=== PATIENT | male | born 1940 | race Caucasian/White ===

== ENCOUNTER 2019-04-15 06:48 | Day surgery (SDC) | payer MEDICARE, OTHER ==
[~2019-04-15] VITALS: Ht 180.3 cm; Wt 212.4 kg
[~2019-04-15 06:48] MED LIST: AMBIEN CR PO; AMLO10 PO; ASPI81EC PO; Arthritis Pain650 M1 PO; BUDE32NIS; CLOB.05TO; CRUTCH3 USE; DILT120 PO; DILT120ERA PO; DIPH50 PO; ESOM20 PO; GABA300 PO; HYDACE10B PO; HYDACE5 PO; LISI20 PO; OMEP20ER PO; OMEPRAZOLE MAGN20 MG PO; OXYACE5T PO; RABE20; RABE20 PO; SILD50TA PO; TAMS.4ER PO; TRAZ50; VIT D PO; VITAMIN B-121000 MCG PO; ZOLP10; ZOLP10 PO; ZOLP12.5 PO
[2019-04-15] MEDS ORDERED: CYAN1000I PO (07:22)
--- NOTE | 2019-04-15 07:27 | NUR ---
04/15/[address] AWARE OF PT'S LOW HR. NO ORDERS GIVEN AT THIS TIME. PT IS RESTING COMFORTABLY IN BED, SIDE RAILS IN PLACE, CALL LIGHT WITHIN REACH, VSS. PT TEACHING COMPLETED.
== END 2019-04-15 08:40 | disposition home or self-care (01) ==
LOC: ORSCSDS 06:48
PROVIDERS: Ophthalmology
PROC: 08RJ3JZ Replacement of Right Lens with Synthetic Substitute, Percutaneous Approach (ICD-10-PCS; principal; 2019-04-15 08:00)
DX: H25.11 Age-related nuclear cataract, right eye (principal); I10 Essential (primary) hypertension; Z79.899 Other long term (current) drug therapy; K21.9 Gastro-esophageal reflux disease without esophagitis; Z87.891 Personal history of nicotine dependence
CPT/HCPCS: J2001; J2250; J3010; J3301; J7120; V2632

== ENCOUNTER 2019-07-13 06:29 | Day surgery (SDC) | payer MEDICARE, OTHER ==
[~2019-07-13] VITALS: Ht 177.8 cm; Wt 97.8 kg
[~2019-07-13 06:29] MED LIST changes: +CYAN1000I PO
[2019-07-13] MEDS ORDERED: PREG100 PO (07:37)
== END 2019-07-13 22:48 | disposition home or self-care (01) ==
LOC: MHTC 06:29
DX: I35.1 Nonrheumatic aortic (valve) insufficiency (principal); I77.810 Thoracic aortic ectasia; I70.0 Atherosclerosis of aorta; I10 Essential (primary) hypertension; E78.5 Hyperlipidemia, unspecified; J44.9 Chronic obstructive pulmonary disease, unspecified; K21.9 Gastro-esophageal reflux disease without esophagitis; G62.9 Polyneuropathy, unspecified; I44.0 Atrioventricular block, first degree; Z87.891 Personal history of nicotine dependence
CPT/HCPCS: 93312; 93325; J0461; J2250; J2310; J3010; J7040

== ENCOUNTER 2020-08-24 21:04 | Emergency (ER) | payer OTHER, MEDICARE ==
[~2020-08-24] VITALS: Ht 180.3 cm; Wt 97.5 kg
[~2020-08-24 21:04] MED LIST changes: +AMLO5 PO; +LOSA50 PO; +PREG100 PO
== END 2020-08-25 00:01 | disposition home or self-care (01) ==
LOC: ER 21:04
DX: R51 Headache (principal); K21.9 Gastro-esophageal reflux disease without esophagitis; I10 Essential (primary) hypertension; Z79.899 Other long term (current) drug therapy; Z87.891 Personal history of nicotine dependence
CPT/HCPCS: 70450; 99284-25

== ENCOUNTER 2021-05-01 08:14 | Emergency (ER) | payer MEDICARE, OTHER ==
[~2021-05-01] VITALS: Ht 180.3 cm; Wt 95.2 kg
[2021-05-01] MEDS ORDERED: SULTRIDS PO (10:20)
== END 2021-05-01 10:29 | disposition home or self-care (01) ==
LOC: ER 08:14
DX: L03.113 Cellulitis of right upper limb (principal); I10 Essential (primary) hypertension; K21.9 Gastro-esophageal reflux disease without esophagitis; Z87.891 Personal history of nicotine dependence; Z79.899 Other long term (current) drug therapy
CPT/HCPCS: 73080; 99283-25

== ENCOUNTER 2021-05-15 10:20 | Emergency (ER) | payer MEDICARE, OTHER ==
[~2021-05-15] VITALS: Ht 180.3 cm; Wt 96.2 kg
[~2021-05-15 10:20] MED LIST changes: +SULTRIDS PO
[2021-05-15] MEDS ORDERED: DOXY100 PO (12:20)
[2021-05-15] MEDS ORDERED: CEPH500 PO (12:20)
== END 2021-05-15 12:27 | disposition home or self-care (01) ==
LOC: ER 10:20
DX: L03.113 Cellulitis of right upper limb (principal); K21.9 Gastro-esophageal reflux disease without esophagitis; Z79.899 Other long term (current) drug therapy
CPT/HCPCS: 99282; A9270

== ENCOUNTER 2021-12-04 14:43 | Emergency (ER) | payer MEDICARE, OTHER ==
[~2021-12-04] VITALS: Ht 180.3 cm; Wt 95.2 kg
[~2021-12-04 14:43] MED LIST changes: +CEPH500 PO; +DOXY100 PO
[2021-12-04 15:22] LABS: BASOPHILS ABSOLUTE AUTO 0.06 K/mm3 (0.00-0.23); BASOPHILS PERCENT AUTO 1 % (0-2); EOSINOPHILS ABSOLUTE AUTO 0.21 K/mm3 (0.00-0.68); EOSINOPHILS PERCENT AUTO 4 % (0-6); Hematocrit 35.6 % (37.0-53.0); Hemoglobin 12.4 g/dL (13.5-17.5); IMMATURE GRAN PERCENT AUTO 0 % (0-1); LYMPHOCYTES ABSOLUTE AUTO 1.64 K/mm3 (0.84-5.20); LYMPHOCYTES PERCENT AUTO 31 % (21-46); MONOCYTES ABSOLUTE AUTO 0.49 K/mm3 (0.16-1.47); MONOCYTES PERCENT AUTO 9 % (4-13); Mean Corpuscular HGB 33.2 pg (26.0-34.0); Mean Corpuscular HGB Conc 34.8 g/dL (31.5-36.5); Mean Corpuscular Volume 95 fL (80-100); NEUTROPHILS ABSOLUTE AUTO 2.98 K/mm3 (1.96-9.15); NEUTROPHILS PERCENT AUTO 55 % (41-73); Platelet Count 188 K/mm3 (150-400); RDW Coefficient Variation 13.8 % (11.7-14.2); RDW Standard Deviation 49.1 fL (35.1-46.3); Red Blood Cell Count 3.73 M/mm3 (4.30-5.90); White Blood Cell Count 5.38 K/mm3 (4.00-11.30)
[2021-12-04 15:38] LABS: Alanine Aminotransfer (ALT/SGP 25 U/L (12-78); Albumin, Blood 3.3 g/dL (3.4-5.0); Albumin/Globulin Ratio 0.9 (0.8-1.8); Alk Phos 70 U/L (50-136); Anion Gap 6 mmol/L (6-16); Aspartate Aminotrans (AST/SGOT 24 U/L (12-37); Bilirubin, Total 0.4 mg/dL (0.1-1.0); Blood Urea Nitrogen 19 mg/dL (8-24); Bun/Creatinine Ratio 27.3 (12.0-20.0); CO2, Blood 25 mmol/L (21-32); Chloride, Blood 109 mmol/L (98-108); Globulin, Blood 3.8 g/dL (2.2-4.0); Glomerular Filtration Rate >60 (60-); Glucose, Blood 130 mg/dL (70-99); Potassium, Blood 3.6 mmol/L (3.5-5.5); Sodium, Blood 140 mmol/L (136-145); Total Protein, Blood 7.1 g/dL (6.4-8.2); Troponin I <0.015 ng/mL (0.000-0.040)
== END 2021-12-04 18:15 | disposition home or self-care (01) ==
LOC: ER 14:43
PROVIDERS: Physician Assistant
DX: R07.89 Other chest pain (principal); Z79.899 Other long term (current) drug therapy; K21.9 Gastro-esophageal reflux disease without esophagitis; I10 Essential (primary) hypertension
CPT/HCPCS: 71046; 80053; 84484; 85025; 93005; 93010; 99285-25

== ENCOUNTER 2022-05-09 06:12 | Day surgery (SDC) | payer MEDICARE, OTHER ==
[~2022-05-09] VITALS: Ht 180.3 cm; Wt 99.0 kg
--- NOTE | 2022-05-09 06:55 | NUR ---
05/09/22 0655 Antelmo SanchesINE TO L EYE AT 0634, MARICARMEN TO L EYE AT 0636 BY [facility].FLL.
== END 2022-05-09 08:30 | disposition home or self-care (01) ==
LOC: ORSCSDS 06:12
PROVIDERS: Ophthalmology
PROC: 08RK3JZ Replacement of Left Lens with Synthetic Substitute, Percutaneous Approach (ICD-10-PCS; principal; 2022-05-09 07:30)
DX: H25.12 Age-related nuclear cataract, left eye (principal); I10 Essential (primary) hypertension; K21.9 Gastro-esophageal reflux disease without esophagitis; E66.8 Other obesity; Z68.30 Body mass index [BMI] 30.0-30.9, adult; Z79.899 Other long term (current) drug therapy
CPT/HCPCS: J2001; J2250; J3010; J3301; J7040; V2632

== ENCOUNTER 2022-08-06 10:50 | Emergency (ER) | payer OTHER, MEDICARE ==
[~2022-08-06] VITALS: Ht 180.3 cm; Wt 95.2 kg
[2022-08-06] MEDS ORDERED: ACET500 PO (13:20)
[2022-08-06] MEDS ORDERED: IBUP400 PO (13:20)
== END 2022-08-06 13:39 | disposition home or self-care (01) ==
LOC: ER 10:50
DX: S80.02XA Contusion of left knee, initial encounter (principal); I10 Essential (primary) hypertension; K21.9 Gastro-esophageal reflux disease without esophagitis; W01.0XXA Fall on same level from slipping, tripping and stumbling without subsequent striking against object, initial encounter; Z96.653 Presence of artificial knee joint, bilateral; Z79.899 Other long term (current) drug therapy
CPT/HCPCS: 73562-LT; A9270; J1885

== ENCOUNTER → 2024-12-04 | Outpatient (CLI) | payer MEDICARE, OTHER ==
[~2024-12-04] MED LIST changes: +ACET500 PO; +IBUP400 PO
[2024-12-04 14:13] LABS: Stool Occult Bld Immuno 1 Negative (NEGATIVE)
== END ==
LOC: LAB 07:20 → LAB SHORT 07:20
PROVIDERS: Family Medicine
DX: D64.9 Anemia, unspecified (principal)
CPT/HCPCS: G0328

== ENCOUNTER 2025-03-02 11:11 | Observation (INO) | payer OTHER, MEDICARE ==
[~2025-03-02] VITALS: Ht 180.3 cm; Wt 95.7 kg
[2025-03-02] MEDS ORDERED: Ketorolac Tromethamine 15mg Vial IV ONE (12:40)
[2025-03-02 13:07] LABS: BASOPHILS ABSOLUTE AUTO 0.05 K/mm3 (0.00-0.23); BASOPHILS PERCENT AUTO 1 % (0-2); EOSINOPHILS ABSOLUTE AUTO 0.06 K/mm3 (0.00-0.68); EOSINOPHILS PERCENT AUTO 1 % (0-6); Hematocrit 35.6 % (37.0-53.0); Hemoglobin 12.5 g/dL (13.5-17.5); IMMATURE GRAN ABSOLUTE AUTO 0.02 K/mm3 (0.00-0.10); IMMATURE GRAN PERCENT AUTO 0 % (0-1); LYMPHOCYTES ABSOLUTE AUTO 1.63 K/mm3 (0.84-5.20); LYMPHOCYTES PERCENT AUTO 27 % (21-46); MONOCYTES ABSOLUTE AUTO 0.46 K/mm3 (0.16-1.47); MONOCYTES PERCENT AUTO 8 % (4-13); Mean Corpuscular HGB 33.6 pg (26.0-34.0); Mean Corpuscular HGB Conc 35.1 g/dL (31.5-36.5); Mean Corpuscular Volume 96 fL (80-100); Mean Platelet Volume 10.5 fL (9.1-12.4); NEUTROPHILS ABSOLUTE AUTO 3.77 K/mm3 (1.96-9.15); NEUTROPHILS PERCENT AUTO 63 % (41-73); Platelet Count 182 K/mm3 (150-400); RDW Coefficient Variation 14.1 % (11.7-14.2); RDW Standard Deviation 49.3 fL (35.1-46.3); Red Blood Cell Count 3.72 M/mm3 (4.30-5.90); White Blood Cell Count 5.99 K/mm3 (4.00-11.30)
[2025-03-02 13:38] LABS: Albumin, Blood 3.4 g/dL (3.4-5.0); Albumin/Globulin Ratio 1.1 (0.8-1.8); Bilirubin, Total 0.7 mg/dL (0.1-1.0); Bun/Creatinine Ratio 18.4 (12.0-20.0); Calcium, Blood 8.7 mg/dL (8.5-10.1); Creatinine, Blood 0.65 mg/dL (0.60-1.20); Globulin, Blood 3.2 g/dL (2.2-4.0); Total Protein, Blood 6.6 g/dL (6.4-8.2)
[2025-03-02] MEDS ORDERED: Aspirin 325 MG Tab PO ONE (14:05)
[2025-03-02] MEDS ORDERED: Ondansetron HCl 2 MG / ML 2ML Vial IV ONE (14:25)
[2025-03-02] MEDS ORDERED: Morphine Sulfate 10 MG/ML 1MLSYR IV PRN (14:25)
[2025-03-02] MEDS ORDERED: Morphine Sulfate 4 MG/1 ML Injection IV ONE (15:55)
[2025-03-02 16:21] LABS: Free Thyroxine 0.88 ng/dL (0.70-1.60)
[2025-03-02 16:28] LABS: Thyroid Stimulating Hormone 3.45 uIU/mL (0.360-4.800); Triiodothyronine, Free 2.2 pg/mL (2.18-3.98)
[2025-03-02] MEDS ORDERED: Polyethylene Glycol 3350 17 gm PO SCH (17:00)
[2025-03-02] MEDS ORDERED: OxyCODONE 5 mg/Acetamin 325 mg TABLET PO PRN (17:05)
[2025-03-02 18:08] VITALS: BP 172/72
[2025-03-02] MEDS ORDERED: Losartan Potassium 50 MG Tab PO ONE (18:55)
[2025-03-02 20:29] VITALS: BP 132/59
[2025-03-02] MEDS ORDERED: Pregabalin 50 MG Capsule PO SCH (21:00)
[2025-03-02] MEDS ORDERED: Melatonin 5 MG Tablet PO SCH (21:50)
[2025-03-03 00:06] VITALS: BP 100/46
[2025-03-03] MEDS ORDERED: NS 1,000 ML IV ONE ×2 (00:17→06:15)
[2025-03-03] MEDS ORDERED: NS 1,000 ML IR ONE (00:20)
--- NOTE | 2025-03-03 00:39 | NUR ---
UPDATE PT REMAINS A&OX4. MIDNIGHT BP SOFT 99/44 WITH MAP BELOW 65. MD NOTIFIED AND ORDERED 1L NS BOLUS. PT REMAINS BRADYCARDIC IN HIGH 30s-40s WHILE SLEEPING. PT STATES HE FEELS GREAT. WILL CONTINUE TO MONITOR.
--- NOTE | 2025-03-03 03:06 | NUR ---
SHIFT SUMMARY PT REMAINS A&OX4. CONTINUES TO BE BRADYCARDIC ON TELE 30s-40s @ REST. LITER BOLUS CONTINUES TO RUN, @ 0223 101/47 (63). PT CONTINUES TO STATE HE FEELS GREAT. NO ACUTE CHANGES OVERNIGHT. THIS RN GAVE REPORT TO ANDREW GAMEZ @ 0300 TO CONTINUE CARE.
[2025-03-03 03:41] VITALS: BP 113/57
[2025-03-03 03:59] LABS: Hematocrit 33.7 % (37.0-53.0); Hemoglobin 11.4 g/dL (13.5-17.5); Mean Corpuscular HGB 33.3 pg (26.0-34.0); Mean Corpuscular HGB Conc 33.8 g/dL (31.5-36.5); Mean Corpuscular Volume 99 fL (80-100); Mean Platelet Volume 11.2 fL (9.1-12.4); Platelet Count 174 K/mm3 (150-400); RDW Coefficient Variation 14.1 % (11.7-14.2); RDW Standard Deviation 51.8 fL (35.1-46.3); Red Blood Cell Count 3.42 M/mm3 (4.30-5.90); White Blood Cell Count 5.58 K/mm3 (4.00-11.30)
[2025-03-03 04:12] LABS: Bun/Creatinine Ratio 18.4 (12.0-20.0); Calcium, Blood 8.2 mg/dL (8.5-10.1); Creatinine, Blood 1.14 mg/dL (0.60-1.20); Potassium, Blood 4.3 mmol/L (3.5-5.5)
[2025-03-03 04:48] VITALS: BP 117/40
[2025-03-03 05:46] VITALS: BP 147/53
--- NOTE | 2025-03-03 05:58 | NUR ---
SHIFT SUMMARY/ASSUMPTION OF CARE NOTE ASSUMED CARE FROM EDUCATION AND OUTREACH COORDINATORVERA ASHLEY AT 0240. PT A/Ox4 AND COOPERATIVE WITH CARE. ANSWERS QUESTIONS APPROPRIATELY AND ABLE TO MAKE HIS NEEDS KNOWN. CARDIAC, CONTINUES TO BE SB WITH 1 DEGREE BLOCK WITH RATE AVERAGING IN 30-50'S. PT ASYMPTOMATIC AT THIS TIME. SBP SOFT DURING THE NIGHT, BUT RESPONDED WELL WITH NS FLUIDS. RESPIRATORY, MAINTAINS SPO2 >92% ON RA WITH NO REPORTS OF SOB OR DYSPNEA. GI/, ABLE TO USE URINAL AT BEDSIDE. NO REPORTS OF N/V/D OR ABD PAIN. NO NEW ORDERS AT THIS TIME. WILL REPORT TO ONCOMING RN. ANYA WISDOM OF THIS NOTE.
[2025-03-03] MEDS ORDERED: Losartan Potassium 50 MG Tab PO SCH ×2 (09:00→16:00)
[2025-03-03] MEDS ORDERED: Enoxaparin 40 MG/0.4 ML SYR SC SCH (09:00)
[2025-03-03] MEDS ORDERED: Cyanocobalamin 500 MCG Tab PO SCH (09:00)
[2025-03-03 09:28] VITALS: BP 131/62
[2025-03-03 12:30] VITALS: BP 146/83
[2025-03-03] MEDS ORDERED: Percocet 5-3251 EACH PO (13:40)
[2025-03-03] MEDS ORDERED: MIRALAX17 GM PO (13:41)
--- NOTE | 2025-03-03 15:19 | NUR ---
End of shift note/ Discharge. Pt has had a good day. Some episodes of bradycardia but Pt has remained asymptomatic. VSS. Pt was discharged home with a zio patch. Education provided on new meds and follow up appointments. All questions were answered. All belongings were taken with Pt. Escorted to the door for to pickup driver.
== END 2025-03-03 15:10 | disposition home or self-care (01) ==
LOC: ER 11:11 → ERHOLD 11:12 → PCU 11:12
PROVIDERS: Student in an Organized Health Care Education/Training Program; ADMIT Internal Medicine
DX: R00.1 Bradycardia, unspecified (principal); I44.0 Atrioventricular block, first degree; I36.1 Nonrheumatic tricuspid (valve) insufficiency; I35.1 Nonrheumatic aortic (valve) insufficiency; R10.9 Unspecified abdominal pain; W19.XXXA Unspecified fall, initial encounter; I11.0 Hypertensive heart disease with heart failure; I50.32 Chronic diastolic (congestive) heart failure; J44.9 Chronic obstructive pulmonary disease, unspecified; K21.9 Gastro-esophageal reflux disease without esophagitis; G62.9 Polyneuropathy, unspecified; E53.8 Deficiency of other specified B group vitamins; E55.9 Vitamin D deficiency, unspecified; G47.33 Obstructive sleep apnea (adult) (pediatric); Z87.891 Personal history of nicotine dependence; Z79.899 Other long term (current) drug therapy
CPT/HCPCS: 36415; 71101; 80048; 80053; 84439; 84443; 84481; 84484; 85025; 85027; 93005; 93010; 93246; 93306; 96372; 96374; 96375; 96376; 99284-25; A9270; G0378; J1650; J1885; J2270; J2405; J7030

== ENCOUNTER 2025-07-12 20:57 | Observation (INO) | payer OTHER, MEDICARE ==
[~2025-07-12] VITALS: Ht 180.3 cm; Wt 96.0 kg
[~2025-07-12 20:57] MED LIST changes: +MIRALAX17 GM PO; +Percocet 5-3251 EACH PO
[2025-07-12 21:16] LABS: BASOPHILS ABSOLUTE AUTO 0.03 K/mm3 (0.00-0.23); BASOPHILS PERCENT AUTO 1 % (0-2); EOSINOPHILS ABSOLUTE AUTO 0.13 K/mm3 (0.00-0.68); EOSINOPHILS PERCENT AUTO 2 % (0-6); Hematocrit 33.5 % (37.0-53.0); Hemoglobin 11.5 g/dL (13.5-17.5); IMMATURE GRAN ABSOLUTE AUTO 0.02 K/mm3 (0.00-0.10); IMMATURE GRAN PERCENT AUTO 0 % (0-1); LYMPHOCYTES ABSOLUTE AUTO 1.62 K/mm3 (0.84-5.20); LYMPHOCYTES PERCENT AUTO 27 % (21-46); MONOCYTES ABSOLUTE AUTO 0.66 K/mm3 (0.16-1.47); MONOCYTES PERCENT AUTO 11 % (4-13); Mean Corpuscular HGB Conc 34.3 g/dL (31.5-36.5); Mean Corpuscular Volume 96 fL (80-100); NEUTROPHILS ABSOLUTE AUTO 3.45 K/mm3 (1.96-9.15); NEUTROPHILS PERCENT AUTO 58 % (41-73); NRBC ABSOLUTE 0.00 K/mm3 (0.00-0.02); NRBC Auto 0.0 /100 WBC (0.0-0.2); Platelet Count 155 K/mm3 (150-400); RDW Coefficient Variation 13.6 % (11.7-14.2); RDW Standard Deviation 48.3 fL (35.1-46.3)
[2025-07-12 21:39] LABS: Alanine Aminotransfer (ALT/SGP 21.0 U/L (12-78); Albumin, Blood 3.2 g/dL (3.4-5.0); Albumin/Globulin Ratio 0.8 (0.8-1.8); Anion Gap 8.0 mmol/L (3-11); Aspartate Aminotrans (AST/SGOT 23.0 U/L (12-37); Bilirubin, Total 0.6 mg/dL (0.1-1.0); Blood Urea Nitrogen 15.0 mg/dL (8-24); CO2, Blood 26.0 mmol/L (21-32); Calcium, Blood 8.4 mg/dL (8.5-10.1); Chloride, Blood 108.0 mmol/L (98-108); Creatinine, Blood 0.75 mg/dL (0.60-1.20); Globulin, Blood 3.8 g/dL (2.2-4.0); Glucose, Blood 103.0 mg/dL (70-99); Potassium, Blood 4.1 mmol/L (3.5-5.5); Sodium, Blood 138.0 mmol/L (136-145); Total Protein, Blood 7.0 g/dL (6.4-8.2)
[2025-07-13] MEDS ORDERED: HydrALAZINE HCl 20 MG / ML 1ML Vial IV PRN (02:40)
[2025-07-13 06:10] LABS: Anion Gap 8.0 mmol/L (3-11); Blood Urea Nitrogen 17.0 mg/dL (8-24); CO2, Blood 24.0 mmol/L (21-32); Calcium, Blood 8.3 mg/dL (8.5-10.1); Chloride, Blood 111.0 mmol/L (98-108); Creatinine, Blood 0.61 mg/dL (0.60-1.20); Ferritin, Serum 484.0 ng/mL (26-388); Glucose, Blood 93.0 mg/dL (70-99); Potassium, Blood 4.1 mmol/L (3.5-5.5); Sodium, Blood 139.0 mmol/L (136-145); Total Iron Binding Capacity 211.0 ug/dL (250-450)
[2025-07-13] MEDS ORDERED: Enoxaparin 40 MG/0.4 ML SYR SC SCH (09:00)
[2025-07-13 10:32] VITALS: BP 152/61
[2025-07-13 12:40] VITALS: BP 154/52
[2025-07-13] MEDS ORDERED: Aminophylline 250MG / 10ML 10 ML Vial ONE (13:08)
[2025-07-13 16:02] VITALS: BP 163/76
[2025-07-13] MEDS ORDERED: FURO20 PO (16:51)
[2025-07-13] MEDS ORDERED: FERSU300 PO (16:51)
[2025-07-13] MEDS ORDERED: POTA10T PO (16:51)
[2025-07-13] MEDS ORDERED: DOCU100 PO (16:51)
--- NOTE | 2025-07-13 17:25 | NUR ---
PT ARRIVED TO UNIT @1028 FROM ED VIA [facility]. HE AMBULATED FROM [facility] TO BED WITH ASSISTANCE. PT IS A&Ox4 AND ABLE TO MAKE NEEDS KNOWN. HE IS ON RA W/O2 SATS > 92%. HE IS ON TELE WITH A HR IN THE 40'S, WHICH WILL OCCASIONALLY DROP INTO THE 30'S AND COME RIGHT BACK UP. HE IS INDEPENDENT W/FWW FOR AMBULATION. STRESS TEST AND ECHO COMPLETED TODAY. PT DISCHARGED HOME @ 1720 W/. ALL PERSONAL BELONGINGS IN HIS POSSESSION.
--- NOTE | 2025-07-13 19:09 | NUR ---
PALLIATIVE CARE VISIT: 1330: CONSULT RECEIVED TO COMPLETE POLST WITH PT. MET WITH PT AND KATELIN PRESENT TO DISCUSS POLST. PT ALREADY EDUCATED ON CHOICES BY MD AND CHOSE TO BE DNR. EDUCATED ON CHOICES IN SECTION B IF PT HAS PULSE AND IS BREATHING. PT ELECTED FULL MEASURES STATING HE WOULD AGREE TO BE INTUBATED TEMPORARILY IF HE WERE IN RESPIRATORY DISTRESS. POLST COMPLETED AND DR. GOLD SIGNED. SENT COPY TO POLST REGISTRY AND MEDICAL RECORDS. ORIGINAL GIVEN TO PT.
== END 2025-07-13 18:18 | disposition home or self-care (01) ==
LOC: ER 20:57 → ERHOLD 20:58 → PCU 07-13 10:00
PROVIDERS: Student in an Organized Health Care Education/Training Program; ADMIT Student in an Organized Health Care Education/Training Program
DX: R07.89 Other chest pain (principal); R00.1 Bradycardia, unspecified; I35.1 Nonrheumatic aortic (valve) insufficiency; I77.810 Thoracic aortic ectasia; I27.20 Pulmonary hypertension, unspecified; I11.0 Hypertensive heart disease with heart failure; I50.30 Unspecified diastolic (congestive) heart failure; G62.9 Polyneuropathy, unspecified; I44.0 Atrioventricular block, first degree; E78.5 Hyperlipidemia, unspecified; J44.9 Chronic obstructive pulmonary disease, unspecified; K21.9 Gastro-esophageal reflux disease without esophagitis; N40.0 Benign prostatic hyperplasia without lower urinary tract symptoms; D50.9 Iron deficiency anemia, unspecified; Z66 Do not resuscitate; Z87.891 Personal history of nicotine dependence; Z79.899 Other long term (current) drug therapy; Z96.642 Presence of left artificial hip joint; Z96.651 Presence of right artificial knee joint
CPT/HCPCS: 36415; 71046; 78452; 80048; 80053; 82607; 82728; 82746; 83540; 83550; 83880; 84484; 85025; 93005; 93010; 93017; 93308; 93321; 99285-25; A9270; A9500; G0378; J0280; J1650; J2785